=== PATIENT | male | born 1970 | race Caucasian/White ===

== ENCOUNTER 2018-09-17 20:56 | Emergency (ER) | payer OTHER ==
--- NOTE | 2018-09-17 21:13 | EDM.PDOC ---
ED HPI GENERAL MEDICAL PROBLEM - General Chief Complaint: Neurological Problem Stated Complaint: UNRESPONSIVE Time Seen by Provider: 09/17/18 21:15 Source of Information: Reports: EMS History Limitations: Reports: Altered Mental Status - History of Present Illness INITIAL COMMENTS - FREE TEXT/NARRATIVE: ED via [facility], altered mental status, non verbal, poor ability to follow commands. Last known well 2 hours prior. Hx recent depression and bipolar disease, htn. Girl friend reported talking to halie around 7 and was "normal" had a lot of stress from events at work today. Stated patient had called mother but was just crying and wouldnt say anything so mother called girlfriend to check on him. Found him sitting up in recliner "frothing at mouth and wouldnt say anything and seemed dazed. Ems report able to ambulate him out of house as unable to get cot in home. Patient staggered gait, Patint awake alert on arrival moving all extremities, Does not follow verbal command - Related Data Allergies Allergy/AdvReac Type Severity Reaction Status Date / Time atorvastatin calcium Allergy Liver Verified 02/18/16 19:02 [From Lipitor] Problems fenofibrate nanocrystallized Allergy Liver Verified 02/18/16 19:02 [From Tricor] Problems fenofibrate,micronized Allergy Liver Verified 02/18/16 19:02 [From Tricor] Problems Home Meds: Home Meds Allopurinol [Zyloprim] 300 mg PO DAILY 02/17/16 [History] Aspirin 325 mg PO DAILY 02/17/16 [History] Haloperidol 1 mg PO BEDTIME 02/17/16 [History] Metoprolol Succinate [Toprol Xl] 100 mg PO DAILY 02/17/16 [History] NIFEdipine [Nifedipine ER] 90 mg PO DAILY 02/17/16 [History] Quinapril HCl [Accupril] 40 mg PO BID 02/17/16 [History] Past Medical History HEENT History: Reports: Impaired Vision Other HEENT History: wears glasses, Cardiovascular History: Reports: Hypertension Respiratory History: Reports: Asthma, Bronchitis, Recurrent, Pneumonia, Recurrent Gastrointestinal History: Reports: None Genitourinary History: Reports: None Musculoskeletal History: Reports: Gout Neurological History: Reports: None Psychiatric History: Reports: None Endocrine/Metabolic History: Reports: None Hematologic History: Reports: None Immunologic History: Reports: None Oncologic (Cancer) History: Reports: None Dermatologic History: Reports: None - Infectious Disease History Infectious Disease History: Reports: Chicken Pox, Measles, Mumps - Past Surgical History Head Surgeries/Procedures: Reports: None HEENT Surgical History: Reports: Tonsillectomy ED ROS GENERAL - Review of Systems Review Of Systems: ROS reveals no pertinent complaints other than HPI. ED EXAM, NEURO - Physical Exam Exam: See Below Exam Limited By: No Limitations General Appearance: Alert, Moderate Distress, Obese Eye Exam: Bilateral Eye: EOMI, PERRL (8mm) Ears: Normal External Exam Nose: Normal Inspection Throat/Mouth: Normal Inspection, Normal Lips Head Exam: Atraumatic, Normocephalic Neck: Normal Inspection, Full Range of Motion Respiratory/Chest: No Respiratory Distress, Lungs Clear, Normal Breath Sounds Cardiovascular: Normal Peripheral Pulses, Regular Rate, Rhythm, No Edema GI/Abdominal: Normal Bowel Sounds, Soft, No Organomegaly Neurological: Alert, Withdraws to Pain, Other (no verbalization, does not follow verbal commands, voming upper and ler extremities , gazes towards IV with start, attempts to reach toward IV site). No: Normal Reflexes, Oriented x 3 Extremities: Normal Inspection. No: Pedal Edema Skin Exam: Warm, Dry, Diaphoretic Course - Vital Signs Last Recorded V/S: Last Vital Signs Temp 97.2 F 09/17/18 21:15 Pulse 65 09/17/18 21:15 Resp 16 09/17/18 21:15 BP 124/83 09/17/18 21:15 Pulse Ox - Orders/Labs/Meds Orders: Active Orders 24 hr Category Date Time Status EKG Documentation Completion [RC] URGENT Care 09/17/18 21:13 Active Labs: Laboratory Tests 09/17/18 09/17/18 09/17/18 Range/Units 21:10 21:10 21:25 WBC 9.5 (5.0-10.0) 10^3/uL RBC 4.55 L (4.6-6.2) 10^6/uL Hgb 13.3 L (14.0-18.0) g/dL Hct 35.5 L (40.0-54.0) % MCV 78.0 L D (80-100) fL MCH 29.2 (27.0-34.0) pg MCHC 37.5 H (33.0-35.0) g/dL Plt Count 240 (150-450) 10^3/uL Neut % (Auto) 72.5 (42.2-75.2) % Lymph % (Auto) 18.8 L (20.5-50.1) % [place] % (Auto) 7.7 (2-8) % Eos % (Auto) 0.7 L (1.0-3.0) % Baso % (Auto) 0.3 (0.0-1.0) % ABG pH (7.35-7.45) ABG pCO2 (35-45) mmHg ABG pO2 (70-100) mmHg ABG HCO3 (22-26) mmol/L ABG O2 Saturation (95-100) % ABG Base Excess ((-2)-(+3)) mmol/L Issac Test O2 Delivery Device Sodium 113 L* D (135-145) mmol/L Potassium 3.5 L (3.6-5.0) mmol/L Chloride 79 L D (101-111) mmol/L Carbon Dioxide 17.0 L (21.0-31.0) mmol/L Anion Gap 20.5 BUN 10 (7-18) mg/dL Creatinine 0.7 (0.6-1.3) mg/dL Est Cr Clr Drug Dosing TNP Estimated GFR (MDRD) > 60 BUN/Creatinine Ratio 14.28 Glucose 139 H (74-105) mg/dL Calcium 8.8 (8.4-10.2) mg/dl Total Bilirubin 2.2 H (0.2-1.0) mg/dL AST 39 (10-42) IU/L ALT 17 (10-60) IU/L Alkaline Phosphatase 72 (42-121) IU/L Troponin I < 0.02 (0.00-0.02) ng/ml Total Protein 7.1 (6.7-8.2) g/dl Albumin 4.4 (3.2-5.5) g/dl Globulin 2.7 Albumin/Globulin Ratio 1.63 Urine Color Light yellow (YELLOW) Urine Appearance Clear (CLEAR) Urine pH 7.0 (5.0-9.0) Ur Specific [place] <= 1.005 (1.005-1.030) Urine Protein Negative (NEGATIVE) Urine Glucose (UA) Negative (NEGATIVE) Urine Ketones Trace H (NEGATIVE) Urine Occult Blood Trace-intact H (NEGATIVE) Urine Nitrite Negative (NEGATIVE) Urine Bilirubin Negative (NEGATIVE) Urine Urobilinogen 0.2 (0.2-1.0) mg/dL Ur Leukocyte Esterase Negative (NEGATIVE) Urine RBC Not seen /HPF Urine WBC Not seen (0-5/HPF) /HPF Ur Epithelial Cells Rare /HPF Urine Bacteria Rare (0-FEW/HPF) /HPF Urine Opiates Screen (NEGATIVE) Ur Oxycodone Screen (NEGATIVE) Urine Methadone Screen (NEGATIVE) Ur Barbiturates Screen (NEGATIVE) U Tricyclic Antidepress (NEGATIVE) Ur Phencyclidine Scrn (NEGATIVE) Ur Amphetamine Screen (NEGATIVE) U Methamphetamines Scrn (NEGATIVE) Urine MDMA Screen (NEGATIVE) U Benzodiazepines Scrn (NEGATIVE) Urine Cocaine Screen (NEGATIVE) U Marijuana (THC) Screen (NEGATIVE) Ethyl Alcohol 5 mg/dL 09/17/18 09/17/18 Range/Units 21:25 21:42 WBC (5.0-10.0) 10^3/uL RBC (4.6-6.2) 10^6/uL Hgb (14.0-18.0) g/dL Hct (40.0-54.0) % MCV (80-100) fL MCH (27.0-34.0) pg MCHC (33.0-35.0) g/dL Plt Count (150-450) 10^3/uL Neut % (Auto) (42.2-75.2) % Lymph % (Auto) (20.5-50.1) % Kent % (Auto) (2-8) % Eos % (Auto) (1.0-3.0) % Baso % (Auto) (0.0-1.0) % ABG pH 7.41 (7.35-7.45) ABG pCO2 36 (35-45) mmHg ABG pO2 104 H (70-100) mmHg ABG HCO3 22.2 (22-26) mmol/L ABG O2 Saturation 98 (95-100) % ABG Base Excess -2 ((-2)-(+3)) mmol/L Issac Test Performed O2 Delivery Device Room air Sodium (135-145) mmol/L Potassium (3.6-5.0) mmol/L Chloride (101-111) mmol/L Carbon Dioxide (21.0-31.0) mmol/L Anion Gap BUN (7-18) mg/dL Creatinine (0.6-1.3) mg/dL Est Cr Clr Drug Dosing Estimated GFR (MDRD) BUN/Creatinine Ratio Glucose (74-105) mg/dL Calcium (8.4-10.2) mg/dl Total Bilirubin (0.2-1.0) mg/dL AST (10-42) IU/L ALT (10-60) IU/L Alkaline Phosphatase (42-121) IU/L Troponin I (0.00-0.02) ng/ml Total Protein (6.7-8.2) g/dl Albumin (3.2-5.5) g/dl Globulin Albumin/Globulin Ratio Urine Color (YELLOW) Urine Appearance (CLEAR) Urine pH (5.0-9.0) Ur Specific [place] (1.005-1.030) Urine Protein (NEGATIVE) Urine Glucose (UA) (NEGATIVE) Urine Ketones (NEGATIVE) Urine Occult Blood (NEGATIVE) Urine Nitrite (NEGATIVE) Urine Bilirubin (NEGATIVE) Urine Urobilinogen (0.2-1.0) mg/dL Ur Leukocyte Esterase (NEGATIVE) Urine RBC /HPF Urine WBC (0-5/HPF) /HPF Ur Epithelial Cells /HPF Urine Bacteria (0-FEW/HPF) /HPF Urine Opiates Screen Negative (NEGATIVE) Ur Oxycodone Screen Negative (NEGATIVE) Urine Methadone Screen Negative (NEGATIVE) Ur Barbiturates Screen Negative (NEGATIVE) U Tricyclic Antidepress Negative (NEGATIVE) Ur Phencyclidine Scrn Negative (NEGATIVE) Ur Amphetamine Screen Negative (NEGATIVE) U Methamphetamines Scrn Negative (NEGATIVE) Urine MDMA Screen Negative (NEGATIVE) U Benzodiazepines Scrn Negative (NEGATIVE) Urine Cocaine Screen Negative (NEGATIVE) U Marijuana (THC) Screen Negative (NEGATIVE) Ethyl Alcohol mg/dL Meds: Medications Discontinued Medications Generic Name Dose Route Start Last Admin Trade Name Freq PRN Reason Stop Dose Admin Lorazepam 1 mg 09/17/18 21:29 09/17/18 21:44 Ativan PO 09/17/18 21:30 Not Given ONETIME ONE Lorazepam Confirm 09/17/18 21:30 09/17/18 21:36 Ativan Administered 09/17/18 21:31 Not Given Dose 2 mg .ROUTE .STK-MED ONE Lorazepam 1 mg 09/17/18 21:34 Ativan IVPUSH 02/08/19 21:35 ONETIME ONE Lorazepam 2 mg 09/17/18 21:35 09/17/18 21:36 Ativan IVPUSH 09/17/18 21:36 2 mg ONETIME ONE Administration Lorazepam 2 mg 09/17/18 23:01 09/17/18 23:03 Ativan IVPUSH 09/17/18 23:02 2 mg ONETIME ONE Administration - Radiology Interpretation Free Text/Narrative:: [facility] Final Radiology Report Call: [phone] assistance Online chat: [email or web address] Name: YAW VELARDE Age: 48Years M Date: 09/17/2018 SSN: -- : [id number] Study: CT HEAD WO Requesting Physician: LUISITO EASON Images: 301 Addl Studies: Provided Clinical History: Contrast: Without Contrast Medium: Contrast Amount: Contrast Method: Page 1 of 2 EXAM: CT Head Without Contrast EXAM DATE/TIME: 09/17/2018 9:08 PM CLINICAL HISTORY: 48 years old, male; Altered mentation--last known well at 1900 TECHNIQUE: Axial computed tomography images of the head/brain without contrast. Coronal and sagittal reformatted images are submitted. All CT scans at this facility use at least one of these dose optimization techniques: automated exposure control; mA and/or kV adjustment per patient size (includes targeted exams where dose is matched to clinical indication); or iterative reconstruction. STROKE PROTOCOL was implemented. COMPARISON: No prior study is available for comparison at the time of this interpretation. FINDINGS: No abnormal foci of altered attenuation within the cerebral or cerebellar parenchyma. No intracranial mass lesion or evidence for acute territorial infarct. There is mild symmetric enlargement of the frontal sulci bilaterally, consistent with early cerebral cortical atrophy. The ventricles and remaining sulci are otherwise within normal limits for age, without midline shift or hydrocephalus. No abnormal extraaxial fluid or air collection; no intracranial hemorrhage. The visualized paranasal sinuses, orbits, mastoid air cells, skull, and scalp are unremarkable. IMPRESSION: --Mild early cerebral cortical atrophy. YAW VELARDE | Final Radiology Report CONFIDENTIALITY STATEMENT This report is intended only for use by the referring physician, and only in accordance with law. If you received this in error, call [phone]. Page 2 of 2 --Otherwise normal noncontrast head CT scan. ASSESSMENT: --[place] Stroke Program Early CT Score (ASPECTS) = 10. Thank you for allowing us to participate in the care of your patient. Dictated and Authenticated by: Marciano Ellis MD 09/17/2018 9:25 PM Central Time ([place] & [place]) - Re-Assessments/Exams Free Text/Narrative Re-Assessment/Exam: 09/17/18 22:[address] Ammon Khan Hospitalist, accepting of patient in tx. Departure - Departure Time of Disposition: 23:10 Disposition: DC/Tfer to Acute Hospital 02 Condition: Undetermined Clinical Impression: Hyponatremia Altered mental status Qualifiers: Altered mental status type: disorientation Qualified Code(s): R41.0 - Disorientation, unspecified - Discharge Information Referrals: Almita Robertson NP [Primary Care Provider] - Forms: ED Department Discharge - My Orders Last 24 Hours: My Active Orders 09/17/18 21:13 EKG Documentation Completion [RC] URGENT - Assessment/Plan Last 24 Hours: My Active Orders 09/17/18 21:13 EKG Documentation Completion [RC] URGENT
[2018-09-17 21:18] VITALS: BP 124/83
[2018-09-17] MEDS ORDERED: LORazepam 1 MG Tab PO ONE (21:29)
[2018-09-17] MEDS ORDERED: LORazepam 2 MG/ML Syringe ONE (21:30)
[2018-09-17] MEDS ORDERED: LORazepam 2 MG/ML Syringe IVPUSH ONE ×3 (21:34→23:01)
[2018-09-17 21:37] LABS: CHLORIDE,CL 79 mmol/L (101-111)
[2018-09-17 21:41] LABS: ANION GAP 20.5; SODIUM,NA 113 mmol/L (135-145)
[2018-09-17 22:01] LABS: BASE EXCESS ARTERIAL -2 mmol/L ((-2)-(+3)); BICARBONATE,ARTERIAL 22.2 mmol/L (22-26); O2 DELIVERY DEVICE ROOM AIR; O2 SATURATION ARTERIAL 98 % (95-100); PCO2 ARTERIAL 36 mmHg (35-45); PO2 ARTERIAL 104 mmHg (70-100)
[2018-09-17 22:02] LABS: ALLEN TEST PERFORMED
== END 2018-09-17 23:12 ==
LOC: DL.ED 20:56
DX: E87.1 Hypo-osmolality and hyponatremia (principal); I10 Essential (primary) hypertension; Z88.8 Allergy status to other drugs, medicaments and biological substances; Z79.82 Long term (current) use of aspirin; Z79.899 Other long term (current) drug therapy
CPT/HCPCS: 36415; 36600; 70450; 80053; 80305; 81001; 82803; 82962; 84484; 85025; 93005; 96374; 96376; 99285; G0480; J2060

== ENCOUNTER 2018-09-26 11:33 | Emergency (ER) | payer OTHER ==
[2018-09-26 11:47] VITALS: BP 141/84
--- NOTE | 2018-09-26 12:00 | EDM.PDOC ---
ED HPI GENERAL MEDICAL PROBLEM - General Chief Complaint: Skin Complaint Stated Complaint: BLOOD CLOT? Time Seen by Provider: 09/26/18 11:52 Source of Information: Reports: Patient History Limitations: Reports: No Limitations - History of Present Illness INITIAL COMMENTS - FREE TEXT/NARRATIVE: This 48 yo male patient reports to the ED with a "lump" in his left posterior calf. The patient reports he was in [facility] last week due to becoming unresponsive. The patient had hyponatremia identified during the visit. The patient reports he had several of his medications changed while in the hospital and got out of the hospital on Thursday. The patient reports he has had itching in his left calf since he got out of [facility], but only noticed the lump today. The patient reports he felt burning in the area this morning when he was taking a shower. Onset: Today Duration: Constant Location: Reports: Lower Extremity, Left Quality: Reports: Ache, Dull Severity: Moderate Improves with: Reports: None Worsens with: Reports: None Context: Reports: Other Associated Symptoms: Reports: No Other Symptoms Left Lower Leg Pain Score (Numeric/FACES): 3 - Related Data Allergies Allergy/AdvReac Type Severity Reaction Status Date / Time atorvastatin calcium Allergy Liver Verified 02/18/16 19:02 [From Lipitor] Problems fenofibrate nanocrystallized Allergy Liver Verified 02/18/16 19:02 [From Tricor] Problems fenofibrate,micronized Allergy Liver Verified 02/18/16 19:02 [From Tricor] Problems Home Meds: Home Meds Allopurinol [Zyloprim] 300 mg PO DAILY 02/17/16 [History] Aspirin 325 mg PO DAILY 02/17/16 [History] Haloperidol 1 mg PO BEDTIME 02/17/16 [History] Metoprolol Succinate [Toprol Xl] 100 mg PO DAILY 02/17/16 [History] NIFEdipine [Nifedipine ER] 90 mg PO DAILY 02/17/16 [History] Quinapril HCl [Accupril] 40 mg PO BID 02/17/16 [History] amLODIPine Besylate [Amlodipine Besylate] 10 mg PO DAILY 09/26/18 [History] Past Medical History HEENT History: Reports: Impaired Vision Other HEENT History: wears glasses, Cardiovascular History: Reports: Hypertension Respiratory History: Reports: Asthma, Bronchitis, Recurrent, Pneumonia, Recurrent Gastrointestinal History: Reports: None Genitourinary History: Reports: None Musculoskeletal History: Reports: Gout Neurological History: Reports: None Psychiatric History: Reports: None Endocrine/Metabolic History: Reports: None Hematologic History: Reports: None Immunologic History: Reports: None Oncologic (Cancer) History: Reports: None Dermatologic History: Reports: None - Infectious Disease History Infectious Disease History: Reports: Chicken Pox, Measles, Mumps - Past Surgical History Head Surgeries/Procedures: Reports: None HEENT Surgical History: Reports: Tonsillectomy Social & Family History - Family History Family Medical History: Noncontributory - Tobacco Use Smoking Status *Q: Never Smoker Second Hand Smoke Exposure: No - Caffeine Use Caffeine Use: Reports: None - Recreational Drug Use Recreational Drug Use: No ED ROS GENERAL - Review of Systems Review Of Systems: ROS reveals no pertinent complaints other than HPI. ED EXAM, SKIN/RASH Exam: See Below Exam Limited By: No Limitations General Appearance: Alert, WD/WN, Moderate Distress Eye Exam: Bilateral Eye: EOMI, Normal Inspection, PERRL Ears: Normal External Exam, Normal Canal, Hearing Grossly Normal, Normal TMs Nose: Normal Inspection, Normal Mucosa, No Blood Throat/Mouth: Normal Inspection, Normal Lips, Normal Teeth, Normal Gums, Normal Oropharynx, Normal Voice, No Airway Compromise Head: Atraumatic, Normocephalic Neck: Normal Inspection, Supple, Non-Tender, Full Range of Motion Respiratory/Chest: No Respiratory Distress, Lungs Clear, Normal Breath Sounds, No Accessory Muscle Use, Chest Non-Tender Cardiovascular: Normal Peripheral Pulses, Regular Rate, Rhythm, No Edema, No Gallop, No JVD, No Murmur, No Rub GI/Abdominal: Normal Bowel Sounds, Soft, Non-Tender, No Organomegaly, No Distention, No Abnormal Bruit, No Mass (Male) Exam: Deferred Rectal (Males) Exam: Deferred Back Exam: Normal Inspection, Full Range of Motion, NT Extremities: Carlos's Sign, Leg Pain (left posterior calf tenderness ) Neurological: Alert, Oriented, CN II-XII Intact, Normal Cognition, Normal Gait, Normal Reflexes, No Motor/Sensory Deficits Psychiatric: Normal Affect, Normal Mood Skin: Warm, Dry, Intact, Normal Color, No Rash Location, Skin: Lower Extremity, Left (posterior calf area of firmness 4 cm diameter, warm to touch) Associated features: Warmth, Tenderness Lymphatic: No Adenopathy Course - Vital Signs Last Recorded V/S: Last Vital Signs Temp 36.3 C 09/26/18 11:45 Pulse 72 09/26/18 11:45 Resp 18 09/26/18 11:45 BP 141/84 H 09/26/18 11:45 Pulse Ox 100 09/26/18 11:45 - Orders/Labs/Meds Orders: Active Orders 24 hr Category Date Time Status Venous Doppler Lwr Ext Lt [US] Urgent Exams 09/26/18 12:37 Ordered Labs: Laboratory Tests 09/26/18 09/26/18 09/26/18 Range/Units 12:03 12:03 12:03 WBC 6.4 (5.0-10.0) 10^3/uL RBC 4.43 L (4.6-6.2) 10^6/uL Hgb 12.9 L (14.0-18.0) g/dL Hct 38.5 L (40.0-54.0) % MCV 86.9 D (80-100) fL MCH 29.1 (27.0-34.0) pg MCHC 33.5 (33.0-35.0) g/dL Plt Count 230 (150-450) 10^3/uL Neut % (Auto) 65.7 (42.2-75.2) % Lymph % (Auto) 23.2 (20.5-50.1) % [place] % (Auto) 7.8 (2-8) % Eos % (Auto) 2.5 (1.0-3.0) % Baso % (Auto) 0.8 (0.0-1.0) % PT 9.6 (9.0-12.0) SEC INR 1.0 (0.9-1.2) D-Dimer, Quantitative 170 (0-400) ng/mL Sodium 135 D (135-145) mmol/L Potassium 3.8 (3.6-5.0) mmol/L Chloride 103 D (101-111) mmol/L Carbon Dioxide 22.0 (21.0-31.0) mmol/L Anion Gap 13.8 BUN 17 (7-18) mg/dL Creatinine 0.7 (0.6-1.3) mg/dL Est Cr Clr Drug Dosing 124.86 mL/min Estimated GFR (MDRD) > 60 BUN/Creatinine Ratio 24.28 Glucose 120 H (74-105) mg/dL Calcium 8.5 (8.4-10.2) mg/dl Total Bilirubin 0.5 (0.2-1.0) mg/dL AST 45 H (10-42) IU/L ALT 37 (10-60) IU/L Alkaline Phosphatase 136 H (42-121) IU/L Total Protein 6.3 L (6.7-8.2) g/dl Albumin 3.9 (3.2-5.5) g/dl Globulin 2.4 Albumin/Globulin Ratio 1.63 Departure - Departure Time of Disposition: 13:48 Disposition: Home, Self-Care 01 Condition: Fair Clinical Impression: Contusion of left calf Qualifiers: Encounter type: initial encounter Qualified Code(s): S80.12XA - Contusion of left lower leg, initial encounter - Discharge Information *PRESCRIPTION DRUG MONITORING PROGRAM REVIEWED*: Not Applicable *COPY OF PRESCRIPTION DRUG MONITORING REPORT IN PATIENT CHIQUITA: Not Applicable Instructions: Contusion, [id number] Forms: ED Department Discharge Care Plan Goals: The patient was advised of the examination, lab and ultrasound results during the visit. The patient was encouraged to rest and do some gentle stretching of the area. If the patient has any additional symptoms, the patient should either return to the emergency department or visit his primary care facility. - My Orders Last 24 Hours: My Active Orders 09/26/18 12:37 Venous Doppler Lwr Ext Lt [US] Urgent - Assessment/Plan Last 24 Hours: My Active Orders 09/26/18 12:37 Venous Doppler Lwr Ext Lt [US] Urgent
[2018-09-26 12:30] LABS: ANION GAP 13.8; CHLORIDE,CL 103 mmol/L (101-111); SODIUM,NA 135 mmol/L (135-145)
--- NOTE | 2018-09-26 14:01 | US ---
Clinical history: 48-year-old male posterior left calf pain and tenderness. Rule out DVT this patient with "slight" edema (left calf is "bruised" but patient denies trauma). Interpretation: Negative exam. No sign of intraluminal echogenic thrombus and normal compressibility deep veins of the left groin, thigh, knee and calf. No vascular aneurysm or avascular popliteal (Stiles's) cyst identified behind the left knee. Satisfactory augmentation and venous waveforms demonstrated respectively in the posterior tibial veins left calf, popliteal vein behind the left knee, and proximally in the femoral veins of the left lower extremity. CONCLUSION: No current sonographic evidence deep vein thrombosis left lower extremity.
== END 2018-09-26 13:54 | disposition home or self-care (01) ==
LOC: DL.ED 11:33
DX: S80.12XA Contusion of left lower leg, initial encounter (principal); I10 Essential (primary) hypertension; J45.909 Unspecified asthma, uncomplicated; Z79.899 Other long term (current) drug therapy; X58.XXXA Exposure to other specified factors, initial encounter
CPT/HCPCS: 36415; 80053; 85025; 85379; 85610; 93971; 99283

== ENCOUNTER 2023-06-27 05:59 | Emergency (ER) | payer OTHER ==
[2023-06-27 07:18] LABS: BASOPHILS PERCENT AUTO 0.6 % (0.0-1.0); EOSINOPHILS PERCENT AUTO 0.3 % (1.0-3.0); HEMATOCRIT 45.6 % (40.0-54.0); HEMOGLOBIN 15.5 g/dL (14.0-18.0); LYMPHOCYTES PERCENT AUTO 18.4 % (20.5-50.1); MEAN CORPUSCULAR HEMOGLOBIN 28.6 pg (27.0-34.0); MEAN CORPUSCULAR VOLUME 84.1 fL (80-100); MONOCYTES PERCENT AUTO 7.5 % (2-8); NEUTROPHILS PERCENT AUTO 73.2 % (42.2-75.2); PLATELET COUNT,PLT 174 10^3/uL (150-450); RED BLOOD CELL COUNT 5.42 10^6/uL (4.6-6.2); WHITE BLOOD CELL COUNT,WBC 7.2 10^3/uL (5.0-10.0)
[2023-06-27 07:38] VITALS: BP 153/99; PULSE 94
[2023-06-27 07:40] LABS: A/G RATIO 1.1; ACETAMINOPHEN 0 ug/mL (10-30 (Therapeutic)); ALANINE AMINOTRANSFERASE,ALT 53 U/L (16-63); ALBUMIN 3.8 g/dL (3.4-5.0); ALKALINE PHOSPHATASE 95 U/L (46-116); ANION GAP 14.9 mEq/L (7-13); ASPARTATE AMNIOTRANSFERASE,AST 34 U/L (15-37); BILIRUBIN TOTAL 0.8 mg/dL (0.2-1.0); BLOOD UREA NITROGEN,BUN 15 mg/dL (7-18); BUN/CREATININE RATIO 12.9 (No establ ref range); CALCIUM 8.8 mg/dL (8.5-10.1); CARBON DIOXIDE,CO2 24 mmol/L (21-32); CHLORIDE,CL 102 mmol/L (98-107); CREATININE 1.16 mg/dL (0.70-1.30); EST CRCL DRUG DOSING (CG) 69.65 mL/min; ESTIMATED GFR 76 mL/min (>=60); ETHANOL BLOOD MEDICAL < 3 mg/dL (0); GLUCOSE RANDOM 207 mg/dL (70-99); POTASSIUM,K 3.9 mmol/L (3.5-5.1); PROTEIN TOTAL,TP 7.3 g/dL (6.4-8.2); SODIUM,NA 137 mmol/L (136-145)
[2023-06-27 07:47] LABS: AMPHETAMINES,URINE NEGATIVE (NEGATIVE); BARBITURATES,URINE NEGATIVE (NEGATIVE); BENZODIAZEPINE,URINE NEGATIVE (NEGATIVE); MDMA (ECSTASY), URINE NEGATIVE (NEGATIVE); METHADONE,URINE NEGATIVE (NEGATIVE); METHAMPHETAMINES,URINE NEGATIVE (NEGATIVE); OPIATES,URINE NEGATIVE (NEGATIVE); OXYCODONE,URINE NEGATIVE (NEGATIVE); PHENCYCLIDINE,URINE NEGATIVE (NEGATIVE); TCA,URINE NEGATIVE (NEGATIVE)
== END 2023-06-27 08:35 | disposition home or self-care (01) ==
LOC: DL.ED 05:59
DX: F31.12 Bipolar disorder, current episode manic without psychotic features, moderate (principal); I10 Essential (primary) hypertension; Z88.8 Allergy status to other drugs, medicaments and biological substances; Z79.82 Long term (current) use of aspirin; Z79.899 Other long term (current) drug therapy
CPT/HCPCS: 36415; 80053; 80143; 80179; 80305-QW; 80307; 85025; 99283; 99284